=== PATIENT | male | born 1980 | race Caucasian/White ===

== ENCOUNTER 2017-12-06 16:34 | Emergency (ER) | payer OTHER ==
[~2017-12-06] VITALS: Ht 185.4 cm; Wt 68.0 kg
[2017-12-06 16:36] VITALS: BP 115/73
--- NOTE | 2017-12-06 16:45 | NUR ---
BIB SELF. AMB WITH STEADY GAITPATIENT PRESENTS TO ED WITH HEADACHE X1DAY . PT STATES SEVERE PAIN IN THE HEAD THAT STARTED EARLY THIS MORNING . STATED HE HAS BEEN NAUSEOUS DUE TO THE PAIN; SKIN IS PINK/WARM/DRY; AAOX4 WITH EVEN AND STEADY GAIT; LUNGS CLEAR BL; HR EVEN AND REGULAR; PT DENIES ANY FEVER, CP, SOB, OR COUGH AT THIS TIME; PATIENT STATES PAIN OF 0/10 AT THIS TIME; VSS; PATIENT POSITIONED FOR COMFORT; HOB ELEVATED; BEDRAILS UP X2; BED DOWN. ER MD MADE AWARE OF PT STATUS.
--- NOTE | 2017-12-06 17:00 | NUR ---
DR KUMAR AT BEDSIDE
[2017-12-06] MEDS ORDERED: KETOROLAC 60 MG/2 ML VIAL IM ONE (17:15)
[2017-12-06] MEDS ORDERED: HYDROmorphone 1 MG/ML AMP IM ONE (17:15)
[2017-12-06] MEDS ORDERED: PROMETHAZINE 25 MG/ML VIAL IM ONE (17:15)
--- NOTE | 2017-12-06 17:30 | NUR ---
Adalberto gross in [facility] - 12/06/[address] at [address] KUMAR AT BEDSIDE
[2017-12-06 18:52] VITALS: BP 120/78
== END 2017-12-06 18:20 | disposition home or self-care (01) ==
LOC: MED 16:34
DX: G43.909 Migraine, unspecified, not intractable, without status migrainosus (principal); F17.200 Nicotine dependence, unspecified, uncomplicated
CPT/HCPCS: 96372; 99284; J1170; J1885; J2550

== ENCOUNTER 2020-04-08 10:21 | Emergency (ER) | payer OTHER ==
[~2020-04-08] VITALS: Ht 182.9 cm; Wt 72.6 kg
[2020-04-08 10:39] VITALS: BP 120/77
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
[2020-04-08] MEDS ORDERED: KETOROLAC 60 MG/2 ML VIAL IM ONE (10:55)
[2020-04-08] MEDS ORDERED: ONDANSETRON 4 MG ODT PO ONE (11:35)
[2020-04-08] MEDS ORDERED: MORPHINE SULFATE 4 MG/ML SYR IM ONE (11:35)
[2020-04-08 12:48] VITALS: BP 120/77
--- NOTE | 2020-04-08 12:48 | NUR ---
Patient discharged with v/s stable. Written and verbal after care instructions given and explained. Patient alert, oriented and verbalized understanding of instructions. Ambulatory with steady gait. All questions addressed prior to discharge. ID band removed. Patient advised to follow up with PMD. Rx of ZOFRAN, MOTRIN, NORCO given. Patient educated on indication of medication including possible reaction and side effects. Opportunity to ask questions provided and answered.
== END 2020-04-08 12:48 | disposition home or self-care (01) ==
LOC: MED 10:21
DX: R51.9 Headache, unspecified (principal); R11.2 Nausea with vomiting, unspecified; M54.2 Cervicalgia; R68.83 Chills (without fever); V49.9XXA Car occupant (driver) (passenger) injured in unspecified traffic accident, initial encounter; Y93.89 Activity, other specified; Y92.89 Other specified places as the place of occurrence of the external cause; Y99.8 Other external cause status
CPT/HCPCS: 70450; 72125; 96372; 99285; J1885; J2270; Q0162